=== PATIENT | female | born 1970 | race African-American/Black ===

== ENCOUNTER 2019-01-05 09:52 | Emergency (ER) | payer OTHER ==
[~2019-01-05] VITALS: Ht 177.8 cm; Wt 81.8 kg
[2019-01-05] MEDS ORDERED: ULTRAM50 M1 PO (11:34)
[2019-01-05] MEDS ORDERED: FLEXERIL PO (11:34)
[2019-01-05 11:40] VITALS: BP 126/81
== END 2019-01-05 11:40 | disposition home or self-care (01) | DRG 552 ==
LOC: ED 09:52
DX: S13.4XXA Sprain of ligaments of cervical spine, initial encounter (principal); S33.5XXA Sprain of ligaments of lumbar spine, initial encounter; S23.3XXA Sprain of ligaments of thoracic spine, initial encounter; V43.52XA Car driver injured in collision with other type car in traffic accident, initial encounter

== ENCOUNTER 2019-03-04 16:42 | Emergency (ER) | payer OTHER ==
[~2019-03-04] VITALS: Ht 177.8 cm; Wt 103.6 kg
[~2019-03-04 16:42] MED LIST: FLEXERIL PO; ULTRAM50 M1 PO
[2019-03-04 18:44] VITALS: BP 129/80
== END 2019-03-04 18:57 | disposition home or self-care (01) ==
LOC: ED 16:42
DX: M25.472 Effusion, left ankle (principal)

== ENCOUNTER 2021-11-05 17:15 | Emergency (ER) | payer OTHER ==
[~2021-11-05 17:15] MED LIST changes: +NO HOME MEDS; +PENICILLN VK500 MG PO
== END 2021-11-05 18:46 | disposition left against medical advice (07) | DRG 951 ==
LOC: ED 17:15 → LWOBS 18:45
DX: Z53.21 Procedure and treatment not carried out due to patient leaving prior to being seen by health care provider (principal)